=== PATIENT | male | born 1975 | race Caucasian/White ===

== ENCOUNTER → 2019-04-27 | Outpatient (REF) | payer OTHER | LOC: M LAB LCGH 11:52 | PROVIDERS: ATTEND Physician Assistant | DX: D48.5 Neoplasm of uncertain behavior of skin (principal) ==

== ENCOUNTER → 2019-09-19 | Outpatient (REF) | payer OTHER | LOC: M LAB LCGH 17:37 | PROVIDERS: ATTEND Physician Assistant | DX: D22.39 Melanocytic nevi of other parts of face (principal) ==

== ENCOUNTER → 2021-05-22 | Outpatient (CLI) | payer OTHER ==
--- NOTE | 2021-05-22 15:21 | REP ---
INDICATION: POSSIBLE STRESS FX 5TH MT RT FOOT. COMPARISON: None. TECHNIQUE: Sagittal T2 fat suppressed and proton density. Coronal proton density, STIR and fat suppressed proton density. Axial fat suppressed proton density and T1. FINDINGS: The cortical and marrow signal is within normal limits throughout. Minimal midfoot degenerative changes are identified. There is no joint effusion. Although seen in a limited fashion on this foot MRI the ligamentous structures of the ankle are within normal limits. All flexor and extensor tendons are intact and of normal appearing low signal throughout. The ligaments within the sinus tarsi are within normal limits. The sinus tarsi adipose signal is preserved. All cortical margins are smooth. There is no evidence of a heel valgus deformity. All chondral surfaces appear smooth and without abnormal chondral or subchondral signal with the exception of minimal subchondral T2 hyper signal seen in the midfoot region particularly the base of the 4th metatarsal and base of the 2nd metatarsal. There is no joint effusion. The plantar soft tissues are within normal limits. There is a possible slight bunionette deformity. IMPRESSION: Minimal midfoot degenerative changes as described above. Possible slight bunionette. Examination is otherwise within normal limits. <Electronically signed by Eduardo Marie > 05/22/21 0967
== END ==
LOC: M RAD 11:45
PROVIDERS: ATTEND Podiatrist
DX: M79.89 Other specified soft tissue disorders (principal)